=== PATIENT | female | born 1975 | race Caucasian/White ===

== ENCOUNTER 2020-06-13 17:02 | Emergency (ER) | payer OTHER ==
[~2020-06-13] VITALS: Ht 160 cm; Wt 62.1 kg
[2020-06-13 17:11] VITALS: Ht 160 cm; Wt 62.1 kg
[2020-06-13 19:06] VITALS: BP 113/72
== END 2020-06-13 19:13 | disposition home or self-care (01) ==
LOC: ED 17:02
DX: S52.121A Displaced fracture of head of right radius, initial encounter for closed fracture (principal); S12.8XXA Fracture of other parts of neck, initial encounter; J45.909 Unspecified asthma, uncomplicated; V49.9XXA Car occupant (driver) (passenger) injured in unspecified traffic accident, initial encounter; Y93.89 Activity, other specified; Y92.89 Other specified places as the place of occurrence of the external cause; Y99.8 Other external cause status
CPT/HCPCS: Q0092